=== PATIENT | male | born 1980 | race Two or more races ===

== ENCOUNTER 2020-03-12 15:31 | Outpatient (REF) | payer OTHER, SELFPAY ==
--- NOTE | 2020-03-12 15:38 | XR_ITS ---
EXAMINATION: XR HAND, LEFT CLINICAL INFORMATION: Polyosteoarthritis COMPARISON: 02/13/2017 TECHNIQUE: PA, lateral, and oblique views of the left hand. FINDINGS: No fracture or dislocation. Alignment is anatomic. Joint spaces are maintained. The soft tissues are unremarkable. There is corticated ossification at the distal aspect of the scaphoid. This is increased in prominence from 2006 XR/XR hand LT 2V IMPRESSION: . No significant arthritic changes. Corticated ossification adjacent to the distal tip of the scaphoid which has increased in prominence since 2006
--- NOTE | 2020-03-12 15:38 | XR_ITS ---
EXAMINATION: XR LUMBOSACRAL SPINE CLINICAL INFORMATION: Low back pain COMPARISON: None TECHNIQUE: Three views of the lumbosacral spine. FINDINGS: The vertebral bodies and posterior elements are normal. The disc spaces are preserved and the vertebral alignment is normal. The paraspinal soft tissues are normal. XR/XR lumbar spine 2-3V IMPRESSION: No evidence of acute fracture or malalignment.
== END 2020-03-12 15:32 | disposition home or self-care (01) ==
LOC: HO.XRAY 15:31
PROVIDERS: PCP Internal Medicine; Visit Provider Physician Assistant
DX: M15.9 Polyosteoarthritis, unspecified (principal); M54.5 Low back pain
CPT/HCPCS: 72100; 73120

== ENCOUNTER → 2020-05-26 09:24 | Outpatient (BNVA) | payer OTHER, SELFPAY | PROVIDERS: PCP Internal Medicine; Visit Provider Nurse Practitioner Family ==

== ENCOUNTER → 2020-08-25 08:51 | Outpatient (BNVA) | payer OTHER, SELFPAY | PROVIDERS: PCP Internal Medicine; Visit Provider Nurse Practitioner Family ==

== ENCOUNTER 2021-03-03 11:45 | Outpatient (REF) | payer OTHER, SELFPAY ==
[2021-03-03 12:08] LABS: MANUAL DIFF FLAG NO
[2021-03-03 12:10] LABS: Basophils Percent Auto 0.4 % (0-2); Eosinophils Absolute Auto 0.2 X10*3/uL (0.0-0.4); Eosinophils Percent Auto 3.1 % (0-4); Hematocrit 43.8 % (42.0-52.0); Hemoglobin 14.3 g/dl (14.0-18.0); Imm Gran Abs Auto 0.01 X10*3/uL (0.00-0.03); Imm Gran Pct Auto 0.1 % (0.0-0.4); Lymphocytes Absolute Auto 1.9 X10*3/uL (1.2-4.9); Lymphocytes Percent Auto 28.8 % (20-40); Mean Corpuscular HGB Conc 32.6 g/dl (31.0-36.0); Mean Corpuscular Hemoglobin 28.1 pg (27.0-33.0); Mean Corpuscular Volume 86.1 fL (80.0-98.0); Mean Platelet Volume 9.8 fL (9.4-12.4); Monocytes Absolute Auto 0.7 X10*3/uL (0.1-1.2); Monocytes Percent Auto 10.3 % (2-11); Neutrophils Absolute Auto 3.8 x10*3/uL (2.0-8.3); Neutrophils Percent Auto 57.3 % (45-73); Platelet Count 268 X10*3/uL (160-400); Red Blood Count 5.09 X10*6/uL (4.60-5.80); Red Cell Distribution Width 14.1 % (11.0-16.0); White Blood Count 6.7 X10*3/uL (4.8-10.8)
[2021-03-03 12:35] LABS: Alanine Aminotransferase 39 U/L (0-40); Albumin Level 4.5 g/dL (3.5-5.0); Alkaline Phosphatase 68 U/L (39-117); Anion Gap 11 (12-20); Aspartate Amino Transferase 31 U/L (5-37); Bilirubin Total 0.3 mg/dL (0.0-1.0); Blood Urea Nitrogen 16 mg/dL (9-16); Calcium 9.8 mg/dL (8.4-10.2); Carbon Dioxide 29 mmol/L (22-29); Chloride 105 mmol/L (96-108); Cholesterol 183 mg/dL; Estimated Glomerular Filt Rate > 60; Glucose Fasting 93 mg/dL (60-99); HDL Cholesterol 43 mg/dL; LDL Cholesterol Calculated 121 mg/dl; Potassium 5.1 mmol/L (3.3-5.1); Sodium 140 mmol/L (135-145); Total Protein 7.3 g/dL (6.5-8.0); Triglycerides 95 mg/dL
[2021-03-03 12:50] LABS: Thyroid Stimulating Hormone 1.17 uIU/mL (0.32-4.0)
[2021-03-08 14:16] LABS: Vitamin D 25-OH, D2 <4 ng/mL; Vitamin D 25-OH, D3 16 ng/mL; Vitamin D 25-OH, Total 16 ng/mL (30-100)
== END 2021-03-03 11:46 | disposition home or self-care (01) ==
LOC: HO.LAB 11:45
PROVIDERS: PCP Internal Medicine; Visit Provider Internal Medicine
DX: E66.9 Obesity, unspecified (principal); Z68.31 Body mass index [BMI] 31.0-31.9, adult; E78.5 Hyperlipidemia, unspecified; D64.9 Anemia, unspecified; E55.9 Vitamin D deficiency, unspecified
CPT/HCPCS: 36415; 80053; 80061; 82306; 84443; 85025

== ENCOUNTER → 2021-08-04 09:51 | Outpatient (BNVA) | payer OTHER, SELFPAY | PROVIDERS: PCP Internal Medicine; Visit Provider Physician Assistant Medical | DX: S39.012A Strain of muscle, fascia and tendon of lower back, initial encounter (principal); X58.XXXA Exposure to other specified factors, initial encounter | CPT/HCPCS: 99203 ==

== ENCOUNTER → 2021-08-11 13:03 | Outpatient (BNVA) | payer OTHER, SELFPAY | PROVIDERS: PCP Internal Medicine; Visit Provider Physician Assistant | DX: S39.012A Strain of muscle, fascia and tendon of lower back, initial encounter (principal); X58.XXXA Exposure to other specified factors, initial encounter | CPT/HCPCS: 99213 ==

== ENCOUNTER → 2022-05-06 11:06 | Outpatient (BNVA) | payer OTHER, SELFPAY | PROVIDERS: PCP Internal Medicine; Referring Provider Internal Medicine; Visit Provider Surgery | DX: Z13.89 Encounter for screening for other disorder (principal) ==

== ENCOUNTER 2023-06-08 10:47 | Outpatient (AMB) | payer OTHER, SELFPAY ==
--- NOTE | 2023-06-08 10:55 | A.OFFPC_ITS ---
Vital Signs 06/08/23 10:58 Height 5 ft 10 in Weight 221 lb 4 oz BMI 31.7 BP 100/66 Blood Pressure Location Lt brachial Position Sitting Pulse 106 H Pulse Source Pulse Oximeter Pulse Oximetry (%) 97 Oxygen Delivery Method Room Air Intake Visit Reasons: Alba Ocampo Intake Note: Patient is here today for transfer of care from . Patient is here to follow up on ROBERTO CARLOS, Asthma, Lumbar back pain. Deputy General Counsel Required: No Shuttle Fitting Supervisor: Not Required per policy Accompanied by: Self / Same As Patient Allergies aspirin Allergy (Intermediate, Verified 06/08/23 13:03) anaphylaxis citric acid [Ying-[place]] Allergy (Intermediate, Verified 06/08/23 13:03) anaphylaxis ibuprofen Allergy (Intermediate, Verified 06/08/23 13:03) headache, anaphylaxis seafood Allergy (Intermediate, Verified 06/08/23 13:03) Anaphylaxis shellfish derived Allergy (Intermediate, Verified 06/08/23 13:03) Anaphylaxis sodium bicarbonate [Ying-[place]] Allergy (Intermediate, Verified 06/08/23 13:03) anaphylaxis naproxen Adverse Reaction (Mild, Verified 06/08/23 13:03) nausea Medication List - Last Reconciled 06/08/23 by Abdullahi Haddad MD albuterol sulfate 90 mcg/actuation 2 puffs PO Q6H PRN epinephrine (EpiPen) 0.3 mg (0.3 mL) IM Q4H PRN triamcinolone acetonide (Nasacort) 1 spray intranasal DAILY 30 days Tobacco use date assessed: 06/08/23 Dental Screening Dental Screen Date: 06/08/23 Did you have a dental visit in the last 12 months?: No Did you have a dental problem in the last 6 months where you did not have access to dental care?: No Was dental information given to patient?: Patient has dentist HPI Alba Ocampo HPI Details 42-year-old male presents to the office to discuss his medical issues. I will be assuming his care as his prior provider has left the practice. Patient gives history of asthma and has had best results with Flovent disc. He uses the albuterol as a rescue inhaler. He is having difficulty filling the Flovent prescription. He can not recall the current steroid medication he is on. He got it from elsewhere. Patient was seen by the surgeon last year for his lipoma on the back. Surgery was not offered to him. Patient feels, he is experiencing more discomfort while driving etcetera. [facility] Medical History (Updated 05/06/22 @ 11:29 by Masood Grijalva MD, FACS, [facility]) Mild recurrent major depression Class 1 obesity with body mass index (BMI) of 31.0 to 31.9 in adult Nasal polyp ROBERTO CARLOS (obstructive sleep apnea) Moderate asthma Surgical History (Updated 06/08/23 @ 11:03 by CHRISTIANO Guzman) History of nasal surgery History of tracheostomy History of chest tube placement Family History Mother No problems noted. Father Asthma Substance use disorder Son No problems noted. Sister No problems noted. Brother No problems noted. Social History (Updated 06/08/23 @ 11:03 by CHRISTIANO Guzman) Housing: House Alcohol intake: never Patient Tobacco Use Status: Never used Tobacco Tobacco use type: Cigarette e-Cigarette/Vaping Use: Currently Using Frequency of e-Cigarette/Vaping Use: every other day Second Hand Smoke Exposure: No service: No Current occupational status: employed Current occupational exposures/hazards: No Cognitive needs: No Hearing needs: No Vision needs: No Questionnaire PHQ-9 Over the last 2 weeks, how often have you been bothered by any of the following problems? 1. Little interest or pleasure in doing things: not at all 2. Feeling down, depressed, or hopeless: not at all 3. Trouble falling or staying asleep, or sleeping too much: not at all 4. Feeling tired or having little energy: not at all 5. Poor appetite or overeating: not at all 6. Feeling bad about yourself - or that you are a failure or have let yourself or your family down: not at all 7. Trouble concentrating on things, such as reading the newspaper or watching television: not at all 8. Moving or speaking so slowly that other people could have noticed. Or the opposite - being so fidgety or restless that you have been moving around a lot more than usual: not at all 9. Thoughts that you would be better off or of hurting yourself in some way: not at all Total score: 0 Depression Screening Interpretation: Negative Depression Screening Done: Yes Source: Developed by Drs. Odin Leblanc, Lauryn Andrade, Lawrence Corrigan and colleagues, with an educational tawanna from [employer]. Thrive Questionnaire Date Thrive assessed: 06/08/23 I am a: Patient What is your living situation today?: I have a steady place to live Within the past 12 months, did the food you bought not last and you didn't have the money to get more?: Never true Within the past 12 months, did you worry whether your food would run out before you got money to buy more?: Never true Do you have trouble paying for medicines?: No Do you have trouble getting transportation to medical appointments?: No Do you have trouble paying your heating and electricity bill?: No Do you have trouble taking care of your child, family member or friend?: No Do you have trouble with day-to-day activities such as bathing, preparing meals, shopping, managing finances, etc.?: No Are you currently unemployed and looking for a job?: No Are you interested in more education?: No Currently or been in a relationship where the following occur: no concerns reported THRIVE Score: 0 AUDIT C Alcohol Use Questionnaire (AUDIT-C) 1. How often do you have a drink containing alcohol?: Never Total Score: 0 DINA-7 AMB Questionnaire DINA-7 Date DINA - 7 assessed: 06/08/23 Feeling nervous, anxious, or on edge: 0 = Not at all Not being able to stop or control worryin = Not at all Worrying too much about different things: 0 = Not at all Trouble relaxin = Not at all Being so restless that it is hard to sit still: 0 = Not at all Becoming easily annoyed or irritable: 0 = Not at all Feeling afraid as if something awful might happen: 0 = Not at all Total DINA-7 score (0-4 normal; 5-9 mild; 10-14 moderate; 15-21 severe): 0 Source: Developed by Drs. Odin Leblanc, Lauryn Andrade, Lawrence Corrigan and colleagues, with an educational tawanna from [employer]. Physical exam (Primary Care) Vital Signs: Last Vital Signs Pulse 106 H 06/08/23 10:58 BP 100/66 06/08/23 10:58 Pulse Ox 97 06/08/23 10:58 Oxygen Delivery Method Room Air 06/08/23 10:58 BMI result Body Mass Index 31.7 Tobacco/Smoking Status: Tobacco use Status Tobacco use date assessed 06/08/23 06/08/23 11:00 Patient Tobacco Use Status Never used Tobacco 06/08/23 11:05 Tobacco use type Cigarette 06/08/23 11:03 e-Cigarette/Vaping Use Currently Using 06/08/23 11:05 PHQ-9: PHQ-9 Score PHQ-9: Total score 0 06/08/23 11:00 Depression Screening Interpretation: Negative Thrive Assessment: Date of Thrive Assessment Date Thrive assessed 06/08/23 06/08/23 11:00 Currently or been in a relationship where the following occur: no concerns reported Const General: cooperative and healthy appearing Nutritional Appearance: well nourished Orientation/consciousness: patient oriented x3 Limitations: no limitations HENMT Head: Yes normal to inspection Eyes General: appearance normal, both eyes and all related structures Neck Neck: Yes normal visual inspection Chest Chest palpation & inspection: normal palpation of entire chest wall Resp Effort & Inspection: normal respiratory effort Neuro General: patient oriented x3 Assessment and Plan Assessment & Plan (1) Mild recurrent major depression: Code(s): F33.0 - Major depressive disorder, recurrent, mild Plan: Condition is stable. Continue current medications. (2) Moderate asthma: Code(s): J45.909 - Unspecified asthma, uncomplicated Qualifiers: Asthma persistence: persistent Asthma complication type: uncomplicated Qualified Code(s): J45.40 - Moderate persistent asthma, uncomplicated Plan: Patient will call and and inform us of the steroid inhaler he is currently using and I will call in the prescription. Blood work has been ordered. (3) Lipoma of back: Code(s): D17.1 - Benign lipomatous neoplasm of skin and subcutaneous tissue of trunk Plan: Patient advised to call the surgeon and ask for it to be removed. Orders: Orders Liver Panel Today F33.0 - Major depressive disorder, recurrent, mild, J45.909 - Unspecified asthma, uncomplicated Lipid Panel Today F33.0 - Major depressive disorder, recurrent, mild, J45.909 - Unspecified asthma, uncomplicated UA and rflx microscopic Today F33.0 - Major depressive disorder, recurrent, mild, J45.909 - Unspecified asthma, uncomplicated Complete Blood Count no Diff Today F33.0 - Major depressive disorder, recurrent, mild, J45.909 - Unspecified asthma, uncomplicated Basic Metabolic Panel Today F33.0 - Major depressive disorder, recurrent, mild, J45.909 - Unspecified asthma, uncomplicated Thyroid Stimulating Hormone Today F33.0 - Major depressive disorder, recurrent, mild, J45.909 - Unspecified asthma, uncomplicated Medications: New epinephrine (EpiPen) 0.3 mg (0.3 mL) IM Q4H PRN 2 ea 0RF anaphylaxis Coding Level of Care Code Est Pt Level 4 (08106) Diagnoses Mild recurrent major depression F33.0 Moderate persistent asthma without complication J45.40 Asthma persistence: persistent Asthma complication type: uncomplicated Lipoma of back D17.1
[2023-06-08 10:58] VITALS: BP 100/66; PULSE 106; O2SAT 97; BMI 31.7
== END 2023-06-08 13:27 | disposition home or self-care (01) ==
PROVIDERS: PCP Internal Medicine; Visit Provider Internal Medicine
DX: F33.0 Major depressive disorder, recurrent, mild (principal); J45.40 Moderate persistent asthma, uncomplicated; D17.1 Benign lipomatous neoplasm of skin and subcutaneous tissue of trunk
CPT/HCPCS: 99214

== ENCOUNTER 2024-03-06 14:36 | Outpatient (AMB) | payer OTHER, SELFPAY ==
--- NOTE | 2024-03-06 14:42 | MHC.PC.OV ---
Vital Signs 03/06/24 14:44 Height 5 ft 10 in Weight 211 lb 6 oz BMI 30.3 BP 100/68 Blood Pressure Location Lt brachial Position Sitting Pulse 93 Pulse Source Pulse Oximeter Pulse Oximetry (%) 97 Oxygen Delivery Method Room Air Intake Visit Reasons: Rsched from 03/06 Intake Note: Patient is here to follow up on Lump on back. Wafer Polisher Required: No Small Battery Plate Assembler: Not Required per policy Accompanied by: Self / Same As Patient Allergies aspirin Allergy (Intermediate, Verified 03/06/24 14:43) anaphylaxis citric acid [Ying-[place]] Allergy (Intermediate, Verified 03/06/24 14:43) anaphylaxis ibuprofen Allergy (Intermediate, Verified 03/06/24 14:43) headache, anaphylaxis seafood Allergy (Intermediate, Verified 03/06/24 14:43) Anaphylaxis shellfish derived Allergy (Intermediate, Verified 03/06/24 14:43) Anaphylaxis sodium bicarbonate [Ying-[place]] Allergy (Intermediate, Verified 03/06/24 14:43) anaphylaxis naproxen Adverse Reaction (Mild, Verified 03/06/24 14:43) nausea Tobacco use date assessed: 03/06/24 Dental Screening Dental Screen Date: 06/08/23 HPI Rsched from 03/06 HPI Details 43-year-old male presenting to the clinic for evaluation of the lump to his left back that is increased in size and causing him more pain. Patient is requesting to be seen by the general surgeon again to have this surgically removed. He reports when he seen the general surgeon in the past the lipoma was not affecting his daily life, at that time he decided not to have it surgically removed. He reports it is now affecting his daily life, causing him discomfort daily. Pain from the lipoma is worse when he sits back or lays down. Patient admits to recently being evaluated at [facility] Department 2 weeks ago for asthma exacerbation. Had a negative chest x-ray for pneumonia. Diagnosed with URI. Sent home on a week of prednisone which he has completed. He did not receive any antibiotics. He reports his symptoms has completely resolved from the URI. Patient requesting refill on albuterol inhaler. Patient is interested in influenza vaccine at this time. Patient forgot to have his blood work obtain at his last visit reports he will go this week for the labs that were ordered in May. Patient denies any other symptoms complaints or concerns at this time. [facility] Medical History Mild recurrent major depression Class 1 obesity with body mass index (BMI) of 31.0 to 31.9 in adult Nasal polyp ROBERTO CARLOS (obstructive sleep apnea) Moderate asthma Surgical History History of nasal surgery History of tracheostomy History of chest tube placement Family History Mother No problems noted. Father Asthma Substance use disorder Son No problems noted. Sister No problems noted. Brother No problems noted. Social History Housing: House Alcohol intake: never Patient Tobacco Use Status: Never used Tobacco Tobacco use type: Cigarette e-Cigarette/Vaping Use: Currently Using Second Hand Smoke Exposure: No service: No Current occupational status: employed Current occupational exposures/hazards: No Cognitive needs: No Hearing needs: No Vision needs: No Questionnaire Thrive Questionnaire Date Thrive assessed: 06/08/23 DINA-7 AMB Questionnaire DINA-7 Date DINA - 7 assessed: 06/08/23 Source: Developed by Drs. Odin Leblanc, Lauryn Andrade, Lawrence Corrigan and colleagues, with an educational tawanna from [employer]. Review of Systems Const All systems reviewed & are unremarkable except as noted in HPI and below Physical exam (Primary Care) Vital Signs: Last Vital Signs Pulse 93 03/06/24 14:44 BP 100/68 03/06/24 14:44 Pulse Ox 97 03/06/24 14:44 Oxygen Delivery Method Room Air 03/06/24 14:44 Appearance: Alert. Oriented X3. No acute distress. ? Head: Normal external exam. Normocephalic. Atraumatic.? Eyes: PERRLA. EOMI. Conjunctiva and sclera normal. Eyelids normal. ? ENT: Pharynx normal. Uvula midline. Moist mucous membranes. ? Neck: Normal inspection. Neck supple. FROM. CVS: Normal heart rate and rhythm. Heart sound normal. No murmurs noted. Pulses normal throughout. Respiratory: No respiratory distress. Painless inspiration. Breath sounds normal. No wheezes/rales/rhonchi noted. Chest nontender. ? No accessory muscle usage noted or decreased air movement noted. Back: ?Full range of motion noted. To left back at the wing of the scapula patient noted to have a 15 x 15 lipoma. There is no erythema, advancing erythema, streaking, purulent drainage, foul odor, crepitus or signs of infection at this time. Skin: Skin warm and dry.? Normal skin color.? Normal skin turgor. No rashes noted. Extremities: Extremities exhibit normal range of motion.? Neuro: Oriented X 3.? No motor deficit.? No sensory deficit.? BMI result Body Mass Index 30.3 Tobacco/Smoking Status: Tobacco use Status Tobacco use date assessed 03/06/24 03/06/24 14:48 Patient Tobacco Use Status Never used Tobacco 03/06/24 14:48 Tobacco use type Cigarette 03/06/24 14:48 e-Cigarette/Vaping Use Currently Using 03/06/24 14:48 Thrive Assessment: Date of Thrive Assessment Date Thrive assessed 06/08/23 03/06/24 14:48 Office Procedures Flu Questionnaire Does the patient have a severe egg allergy?: No Does the patient have severe life threatening allergies?: No Does the patient have a fever or illness today?: No Has the patient ever had Guillain-Brewster Syndrome?: No Has the patient ever had any past reaction to a flu shot?: No Immunizations Fluarix Triv [id number] (PF) 45 mcg (15 mcg x 3)/0.5 mL IM syringe Performing Provider: Abdullahi Haddad MD [facility] [place] [facility] Administered by: LORENZO Levin on 03/06/24 15:36 Dose Route Admin Location Dispensed Lot Number Expiration Date NDC Bundling Machine Operator 0.5 mL IM Left Deltoid 0.5 mL [id number] 10/21/24 [id number] [employer] VIS Given Date VIS Provided VIS Publication Date 03/06/24 Single Vaccine 20 Eligibility Eligibility Date Funding Source Not [facility] Eligible 03/06/24 Private Coding Level of Care Code Est Pt Level 4 (58041) Complex EM visit Add On G2211 Diagnoses Lipoma of back D17.1 Moderate persistent asthma without complication J45.40 Asthma complication type: uncomplicated Asthma persistence: persistent Assessment & Plan Assessment & Plan (1) Lipoma of back: Code(s): D17.1 - Benign lipomatous neoplasm of skin and subcutaneous tissue of trunk Category: Medical Plan: Patient will be referred to general surgeon here at [facility]. (2) Moderate asthma: Code(s): J45.909 - Unspecified asthma, uncomplicated Category: Medical Qualifiers: Asthma complication type: uncomplicated Asthma persistence: persistent Qualified Code(s): J45.40 - Moderate persistent asthma, uncomplicated Plan: Patient given 3 refills for his albuterol inhaler. If he needs any additional refills he will contact us via phone or through the patient portal. Orders: Orders Influenza [id number] Immunization Today Z23 - Encounter for immunization Referrals General Surgery Referral D17.1 - Benign lipomatous neoplasm of skin and subcutaneous tissue of trunk Medications: Refilled albuterol sulfate 90 mcg/actuation 2 puffs PO Q6H PRN 8.5 grams 3RF for muscle spasm J45.40 - Moderate persistent asthma, uncomplicated Discontinued triamcinolone acetonide (Nasacort) administer into each nostril Discontinued Reason: Doctor's Order 1 spray intranasal DAILY 30 days 16.9 mL 1RF Patient Instructions: Patient to have outpatient labs while fasting. Albuterol inhaler refilled. Patient to be referred to general surgeon for lipoma Patient to return in 6 months.
[2024-03-06 14:44] VITALS: BP 100/68; PULSE 93; O2SAT 97; BMI 30.3
== END 2024-03-06 15:31 | disposition home or self-care (01) ==
PROVIDERS: PCP Internal Medicine; Visit Provider Internal Medicine
DX: D17.1 Benign lipomatous neoplasm of skin and subcutaneous tissue of trunk (principal); J45.40 Moderate persistent asthma, uncomplicated; Z23 Encounter for immunization

== ENCOUNTER → 2024-03-06 14:36 | Outpatient (BNVA) | payer OTHER, SELFPAY | PROVIDERS: PCP Internal Medicine; Visit Provider Internal Medicine | DX: D17.1 Benign lipomatous neoplasm of skin and subcutaneous tissue of trunk (principal); J45.40 Moderate persistent asthma, uncomplicated; Z23 Encounter for immunization | CPT/HCPCS: 90471; 90656 ==

== ENCOUNTER 2024-03-20 07:56 | Outpatient (AMB) | payer OTHER, SELFPAY ==
--- NOTE | 2024-03-20 07:59 | MHC.OFFVIS ---
Vital Signs 03/20/24 08:05 Height 5 ft 10 in Weight 214 lb BMI 30.7 BP 125/71 Blood Pressure Location Rt brachial Position Sitting Pulse 76 Intake Visit Reasons: Lipoma Intake Note: Patient referred by pcp Dr. Haddad for lipoma on back. Present for 2yrs. Patient c/o: enlarging, painful with pressure. Lamp Tester And Inspector Required: No Accompanied by: Self / Same As Patient Allergies aspirin Allergy (Intermediate, Verified 03/20/24 08:04) anaphylaxis citric acid [Ying-[place]] Allergy (Intermediate, Verified 03/20/24 08:04) anaphylaxis ibuprofen Allergy (Intermediate, Verified 03/20/24 08:04) headache, anaphylaxis seafood Allergy (Intermediate, Verified 03/20/24 08:04) Anaphylaxis shellfish derived Allergy (Intermediate, Verified 03/20/24 08:04) Anaphylaxis sodium bicarbonate [Ying-[place]] Allergy (Intermediate, Verified 03/20/24 08:04) anaphylaxis naproxen Adverse Reaction (Mild, Verified 03/20/24 08:04) nausea HPI Comments Details: Patient presents with a 2+ year history of a left mid back giant lipoma. Because of progression of symptoms he presents here for further evaluation. He would like to have it excised. Patient had a smaller lower back lipoma excised several years ago but nothing to this size as he has now. Chart was reviewed and patient evaluate [facility] Medical History Mild recurrent major depression Class 1 obesity with body mass index (BMI) of 31.0 to 31.9 in adult Nasal polyp ROBERTO CARLOS (obstructive sleep apnea) Moderate asthma Surgical History History of nasal surgery History of tracheostomy History of chest tube placement Family History Mother No problems noted. Father Asthma Substance use disorder Son No problems noted. Sister No problems noted. Brother No problems noted. Social History Housing: House Alcohol intake: never Patient Tobacco Use Status: Never used Tobacco Tobacco use type: Cigarette e-Cigarette/Vaping Use: Currently Using Second Hand Smoke Exposure: No service: No Current occupational status: employed Current occupational exposures/hazards: No Cognitive needs: No Hearing needs: No Vision needs: No Physical Exam Vital Signs: Last Vital Signs Pulse 76 03/20/24 08:05 BP 125/71 03/20/24 08:05 BMI result Body Mass Index 30.7 Const Other: Well-developed male in no acute distress Chest Other: Chest breath sounds bilaterally, HS 1 in 2 GI Other: Abdomen mildly corpulent, soft, benign Back/Spine/Pelvis Other: Patient has an enormous left mid back lipoma. This measures approximately 15 by 8 cm. Assessment & Plan Assessment & Plan (1) Lipoma of back: Code(s): D17.1 - Benign lipomatous neoplasm of skin and subcutaneous tissue of trunk Category: Surgical Plan Risks, benefits, alternatives of massive left mid back lipoma excision were reviewed with the patient and included but not limited to bleeding, infection, recurrence, numbness, pain, scarring, seroma formation, wound dehiscence and the patient wishes to proceed. All questions answered. Arrangements were made for this on a day which is convenient for him. Coding Level of Care Code New Pt Level 5 (16848) Diagnoses Lipoma of back D17.1
[2024-03-20 08:05] VITALS: BP 125/71; PULSE 76; BMI 30.7
== END 2024-03-20 08:15 | disposition home or self-care (01) ==
PROVIDERS: PCP Internal Medicine; Visit Provider Surgery
DX: D17.1 Benign lipomatous neoplasm of skin and subcutaneous tissue of trunk (principal)
CPT/HCPCS: 99204

== ENCOUNTER 2024-04-12 09:45 | Day surgery (SDC) | payer OTHER, SELFPAY ==
[2024-04-10 10:23] VITALS: BMI 30.7
--- NOTE | 2024-04-11 08:59 | P.HPSUR_ITS ---
Pre-Procedural Eval Section A - 24 Hr Update-Section A only Date of Service: 04/11/24 The patient is an INPATIENT: No Changes since office visit: No Cold of Flu in the past 2 weeks, No New Medical Problems, No Changes in Medication and No Patient answered all questions Section B - Complete if H&P > 30 days Chief Complaint: Benign lipomatous neoplasm of skin Allergies: Allergies Allergy/AdvReac Type Severity Reaction Status Date / Time aspirin Allergy Intermediate anaphylaxis Verified 03/20/24 08:04 citric acid [Ying-[place]] Allergy Intermediate anaphylaxis Verified 03/20/24 08:04 ibuprofen Allergy Intermediate headache, Verified 03/20/24 08:04 anaphylaxis seafood Allergy Intermediate Anaphylaxis Verified 03/20/24 08:04 shellfish derived Allergy Intermediate Anaphylaxis Verified 03/20/24 08:04 sodium bicarbonate Allergy Intermediate anaphylaxis Verified 03/20/24 08:04 [Ying-[place]] naproxen AdvReac Mild nausea Verified 03/20/24 08:04 Review of Systems Sugical H&P ROS: Negative: Constitution, Cardiovascular, Respiratory, Neurological, Psychiatric, Hem-Onc, Allergic/Immunologic, Gastrointestinal, Genitourinary, Musculoskeletal, Integumentary, Endocrine and Eyes/Ears/Nose/Throat Exam Surgical H&P Exam: Normal: HEENT, Normal: Heart, Normal: Lungs, Normal: Extremities, Normal: Abdomen, Normal: Skin and Normal: Neurological Plan I have reviewed the history and physical and performed a pertinent physical examination on my patient. No changes have occurred unless specified. Time Spent With Patient Time: Total time managing care of this patient today ____ minutes.
[2024-04-12 11:45] VITALS: BMI 30.1
[2024-04-12 11:48] VITALS: BP 127/79; PULSE 77; RESP 16; TEMP 36.5; O2SAT 96
[2024-04-12] MEDS: Lactated Ringers 1,000 ML 100 ML IVCONT (12:14)
[2024-04-12] MEDS: Albuterol Sulfate (0.083%) 2.5 MG/3 ML VIAL.NEB INHALE (12:27)
[2024-04-12 12:30] VITALS: PULSE 65; RESP 14; O2SAT 95
--- NOTE | 2024-04-12 13:13 | P.CONAN_ITS ---
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 Father Asthma Substance use disorder Son No problems noted. Sister No problems noted. Brother No problems noted. Surgical History Surgical History History of nasal surgery History of tracheostomy History of chest tube placement Social History Social History Housing: House Alcohol intake: never Patient Tobacco Use Status: Never used Tobacco Tobacco use type: Cigarette e-Cigarette/Vaping Use: Currently Using Second Hand Smoke Exposure: No Use of substances other than those prescribed or required for medical reasons: Yes Substance Use Type Other:: THC vape Are you DNR?: No Advance Directives: No Advance Directives Information Provided: Yes service: No Current occupational status: employed Current occupational exposures/hazards: No Cognitive needs: No Hearing needs: No Vision needs: No Meds Allergies Allergy/AdvReac Type Severity Reaction Status Date / Time aspirin Allergy Intermediate anaphylaxis Verified 03/20/24 08:04 citric acid [[place]] Allergy Intermediate anaphylaxis Verified 03/20/24 08:04 ibuprofen Allergy Intermediate headache, Verified 03/20/24 08:04 anaphylaxis seafood Allergy Intermediate Anaphylaxis Verified 03/20/24 08:04 shellfish derived Allergy Intermediate Anaphylaxis Verified 03/20/24 08:04 sodium bicarbonate Allergy Intermediate anaphylaxis Verified 03/20/24 08:04 [[place]] naproxen AdvReac Mild nausea Verified 03/20/24 08:04 Exam Height,Weight and Vital Signs: Height 5 ft 10 in Weight 97.069 kg Assessment and Plan Assessment Anesthesia Assessment: Chart Reviewed Documented by User: Sunitha Peck DO 04/12/24 13:13 HPI - Anesthesia Eval Consult details Narrative: 43yo M for Left Wide Local Excision Mid Back Giant Lipoma. Vapes. ROBERTO CARLOS not on CPAP. PENDING SALE TO [facility] Past Medical History Medical History Mild recurrent major depression Class 1 obesity with body mass index (BMI) of 31.0 to 31.9 in adult Nasal polyp ROBERTO CARLOS (obstructive sleep apnea) Moderate asthma Family History Family History Mother No problems noted. Father Asthma Substance use disorder Son No problems noted. Sister No problems noted. Brother No problems noted. Family history of problems with anesthesia: No Surgical History Surgical History History of nasal surgery History of tracheostomy History of chest tube placement History of Problems with Anesthesia: No Social History Social History Housing: House Alcohol intake: never Patient Tobacco Use Status: Never used Tobacco Tobacco use type: Cigarette e-Cigarette/Vaping Use: Currently Using Second Hand Smoke Exposure: No Use of substances other than those prescribed or required for medical reasons: Yes Substance Use Type Other:: THC vape Are you DNR?: No Advance Directives: No Advance Directives Information Provided: Yes service: No Current occupational status: employed Current occupational exposures/hazards: No Cognitive needs: No Hearing needs: No Vision needs: No Meds Allergies Allergy/AdvReac Type Severity Reaction Status Date / Time aspirin Allergy Intermediate anaphylaxis Verified 03/20/24 08:04 citric acid [[place]] Allergy Intermediate anaphylaxis Verified 03/20/24 08:04 ibuprofen Allergy Intermediate headache, Verified 03/20/24 08:04 anaphylaxis seafood Allergy Intermediate Anaphylaxis Verified 03/20/24 08:04 shellfish derived Allergy Intermediate Anaphylaxis Verified 03/20/24 08:04 sodium bicarbonate Allergy Intermediate anaphylaxis Verified 03/20/24 08:04 [[place]] naproxen AdvReac Mild nausea Verified 03/20/24 08:04 Exam Exam Date and Time: 04/12/24 1300 Height,Weight and Vital Signs: Height 5 ft 10 in Weight 97.069 kg Vital Signs Temperature 97.7 F 04/12/24 11:48 Pulse Rate 77 04/12/24 11:48 Respiratory Rate 16 04/12/24 11:48 Blood Pressure 127/79 04/12/24 11:48 Pulse Oximetry 96 04/12/24 11:48 Oxygen Delivery Method Room Air 04/12/24 11:48 Temperature 97.7 F 04/12/24 11:48 Pulse Rate 65 04/12/24 12:30 Respiratory Rate 14 04/12/24 12:30 Blood Pressure 127/79 04/12/24 11:48 Pulse Oximetry 96 04/12/24 11:48 Oxygen Delivery Method Room Air 04/12/24 11:48 Airway Mallampati Class: II TM Dist: >3cm Neck ROM: Full Loose/Missing/Broken Teeth: No (patient denies any loose or broken teeth) Heart: S1S2 Lungs: CTAB Assessment and Plan Assessment Anesthesia Assessment: Anesthesia Plan Discussed and Chart Reviewed Final Anesthetic Review Family History of Problems with Anesthesia: No History of Problems with Anesthesia: No NPO: Yes ASA Class: II Final Preanesthetic Review: No Changes in Pt Med Stat, Meds/Allgs Chart Reviewe d, Consent Obtained/Reviewed and Anes Risks/Benef Reviewed Patient Risk: Low Procedure Risk: Low Anesthetic Plan Anesthetic Plan: MAC: and Agree w/ Assess. and Plan Disposition: Standard PACU
--- NOTE | 2024-04-12 14:14 | W.PM.OPN ---
Operative Note Operative Note Date of Service: 04/12/24 Narrative: Preoperative diagnosis: [] Giant left mid flank lipoma Postop diagnosis: [] The same Procedure [] excision giant lipoma Surgeon: [] Cameron Hyperion Analyst: [] [place] Type of Anesthesia: [] Mac Indication for surgery: [] Final specimen size roughly 13 x 12 cm consistent with a giant lipoma Findings: [] Patient brought to the operating room, placed on operative table supine position, after an adequate level of MAC anesthesia was induced, patient was placed in the right lateral decubitus position. Back was prepped and draped in usual sterile fashion using a transverse incision over the mass in question in the mid lateral left back, this carried down through skin, subcutaneous tissue, were superior and inferior skin flaps were developed and the giant lipoma was encountered. This was circumferentially dissected from the surrounding soft tissue and underlying muscle fascia and uneventfully removed. Specimen sent to pathology. Wound was irrigated, secured hemostasis, and closed in the following manner; subcutaneous tissue was reapproximated using interrupted 3-0 Vicryl suture. Skin was closed using interrupted inverted dermal 3-0 Vicryl sutures followed by Steri-Strips and sterile dressings. Wound was infiltrated with 0.5% Marcaine/1% lidocaine at the beginning at the end of the case. Sponge, needle, and instrument counts were reported correct. Patient tolerated the procedure well and emerged from anesthesia stable condition. EBL minimal
[2024-04-12 14:16] VITALS: BP 131/87; PULSE 77; RESP 16; TEMP 36.4; O2SAT 96
[2024-04-12 14:32] VITALS: BP 116/76; PULSE 74; RESP 16; TEMP 36.3; O2SAT 97
== END 2024-04-12 15:12 | disposition home or self-care (01) ==
PROVIDERS: PCP Internal Medicine; Visit Provider Surgery
PROC: (CPT 21931; principal; 2024-04-12 12:30)
DX: D17.1 Benign lipomatous neoplasm of skin and subcutaneous tissue of trunk (principal); G47.33 Obstructive sleep apnea (adult) (pediatric); J45.998 Other asthma; E66.811 Obesity, class 1; Z68.31 Body mass index [BMI] 31.0-31.9, adult; F33.0 Major depressive disorder, recurrent, mild; Z79.899 Other long term (current) drug therapy; Z88.6 Allergy status to analgesic agent; Z88.8 Allergy status to other drugs, medicaments and biological substances; Z98.890 Other specified postprocedural states
CPT/HCPCS: 21931; 88304; 94640; J0690; J1100; J2003; J2250; J2704; J2795; J3010

== ENCOUNTER → 2024-04-12 09:45 | Outpatient (BNV) | payer OTHER, SELFPAY | PROVIDERS: PCP Internal Medicine; Visit Provider Surgery | DX: D17.1 Benign lipomatous neoplasm of skin and subcutaneous tissue of trunk (principal) | CPT/HCPCS: 21931 ==

== ENCOUNTER 2024-04-23 12:55 | Outpatient (AMB) | payer OTHER, SELFPAY ==
--- NOTE | 2024-04-23 13:11 | A.OFFVIS_ITS ---
Intake Visit Reasons: S/P WLE Lt. mid back giant lipoma Intake Note: Patient here s/p WLE Lt mid back lipoma. Reports incision healing well. Patient c/o: no concerns. Denies bleeding, itch, pain. Surgery: 04-12-2024. 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 Accompanied by: Self / Same As Patient Allergies aspirin Allergy (Intermediate, Verified 04/23/24 13:12) anaphylaxis citric acid [Ying[place]] Allergy (Intermediate, Verified 04/23/24 13:12) anaphylaxis ibuprofen Allergy (Intermediate, Verified 04/23/24 13:12) headache, anaphylaxis seafood Allergy (Intermediate, Verified 04/23/24 13:12) Anaphylaxis shellfish derived Allergy (Intermediate, Verified 04/23/24 13:12) Anaphylaxis sodium bicarbonate [[place]ing[place]] Allergy (Intermediate, Verified 04/23/24 13:12) anaphylaxis naproxen Adverse Reaction (Mild, Verified 04/23/24 13:12) nausea HPI Comments Details: Status post giant lipoma excision from left mid back. Patient has minimal incisional discomfort. Pathology is benign. [facility] Medical History Mild recurrent major depression Class 1 obesity with body mass index (BMI) of 31.0 to 31.9 in adult Nasal polyp ROBERTO CARLOS (obstructive sleep apnea) Moderate asthma Surgical History History of nasal surgery History of tracheostomy History of chest tube placement Family History Mother No problems noted. Father Asthma Substance use disorder Son No problems noted. Sister No problems noted. Brother No problems noted. Social History Housing: House Alcohol intake: never Patient Tobacco Use Status: Never used Tobacco Tobacco use type: Cigarette e-Cigarette/Vaping Use: Currently Using Second Hand Smoke Exposure: No service: No Current occupational status: employed Current occupational exposures/hazards: No Cognitive needs: No Hearing needs: No Vision needs: No Physical Exam Back/Spine/Pelvis Other: Incision clean dry and intact healing well. Patient has a moderately sized seroma which is expected. Office Procedures Aspiration of Seroma Details: Under sterile technique, 80 cc after Betadine prep of seroma retrieved from mid back incision status post giant lipoma excision. Procedure well-tolerated Aspiration of Seroma: 97132 Seroma Aspiration All charges added?: Procedure code (CPT) selection complete Assessment & Plan Assessment & Plan (1) Seroma of skin or subcutaneous tissue after non-dermatologic procedure: Code(s): L76.34 - Postprocedural seroma of skin and subcutaneous tissue following other procedure Category: Surgical Plan: Patient was been given local instructions including avoiding strenuous activities next few weeks time and will otherwise follow-up p.r.n.. If he is quite active, the seroma is more likely to recur. All questions answered. Orders: Orders AMB Aspiration of Seroma Today L76.34 - Postprocedural seroma of skin and subcutaneous tissue following other procedure Coding Level of Care Code Global (46462) Diagnoses Seroma of skin or subcutaneous tissue after non-dermatologic procedure L76.34 CPT Codes Aspiration of Seroma ([id number])
== END 2024-04-23 13:19 | disposition home or self-care (01) ==
PROVIDERS: PCP Internal Medicine; Visit Provider Surgery
DX: L76.34 Postprocedural seroma of skin and subcutaneous tissue following other procedure (principal)
CPT/HCPCS: 99024

== ENCOUNTER → 2024-04-23 12:55 | Outpatient (BNVA) | payer OTHER, SELFPAY | PROVIDERS: PCP Internal Medicine; Visit Provider Surgery ==

== ENCOUNTER 2024-07-25 10:21 | Outpatient (AMB) | payer OTHER, SELFPAY ==
[2024-07-25 10:32] VITALS: BP 126/88; PULSE 84; RESP 16; TEMP 37; O2SAT 97; BMI 29.0
--- NOTE | 2024-07-25 10:32 | A.OFFPC_ITS ---
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 Accompanied by: Self / Same As Patient Allergies aspirin Allergy (Intermediate, Verified 07/25/24 10:46) anaphylaxis citric acid [Ying-[place]] Allergy (Intermediate, Verified 07/25/24 10:46) anaphylaxis ibuprofen Allergy (Intermediate, Verified 07/25/24 10:46) headache, anaphylaxis seafood Allergy (Intermediate, Verified 07/25/24 10:46) Anaphylaxis shellfish derived Allergy (Intermediate, Verified 07/25/24 10:46) Anaphylaxis sodium bicarbonate [Ying-[place]] Allergy (Intermediate, Verified 07/25/24 10:46) anaphylaxis naproxen Adverse Reaction (Mild, Verified 07/25/24 10:46) nausea Medication List - Last Reconciled 07/25/24 by SIMÓN Blackwood albuterol sulfate 90 mcg/actuation 2 puffs PO Q6H PRN epinephrine (EpiPen) 0.3 mg (0.3 mL) IM Q4H PRN Tobacco use date assessed: 07/25/24 Dental Screening Dental Screen Date: 07/25/24 Did you have a dental visit in the last 12 months?: No Did you have a dental problem in the last 6 months where you did not have access to dental care?: No Was dental information given to patient?: Patient has dentist HPI pain L inner leg HPI Details Patient is a 42-year-old male presenting with right inner thigh pain The patient reports the pain in the thigh area in more like a cramping type of pain He reports that this pain is more recent; he denies any noted injury to the area The patient is also c/o left mid back burning sensation type pain Reports that every since his surgery close this area, he has been having this type of pain on and off The patient is also concern of his right great toenail fungal and his wondering if he could get this treated Informed the patient that this area is not very vascular and his hard to treat; the area has to be treated for a long period with antifungal that could be toxic to the liver. Discussed with the patient that his liver enzymes with would have to be checked first and be monitored during the treatment. The patient would like these labs to be done to see if he could this treatment He denies chest pain, sob, heart palpitation [facility] Medical History Mild recurrent major depression Class 1 obesity with body mass index (BMI) of 31.0 to 31.9 in adult Nasal polyp ROBERTO CARLOS (obstructive sleep apnea) Moderate asthma Surgical History History of nasal surgery History of tracheostomy History of chest tube placement Family History Mother No problems noted. Father Asthma Substance use disorder Son No problems noted. Sister No problems noted. Brother No problems noted. Social History Housing: House Alcohol intake: never Patient Tobacco Use Status: Never used Tobacco e-Cigarette/Vaping Use: Currently Using Second Hand Smoke Exposure: No service: No Current occupational status: employed Current occupational exposures/hazards: No Cognitive needs: No Hearing needs: No Vision needs: No Questionnaire PHQ-9 Over the last 2 weeks, how often have you been bothered by any of the following problems? 1. Little interest or pleasure in doing things: several days 2. Feeling down, depressed, or hopeless: more than half the days 3. Trouble falling or staying asleep, or sleeping too much: nearly every day 4. Feeling tired or having little energy: nearly every day 5. Poor appetite or overeating: not at all 6. Feeling bad about yourself - or that you are a failure or have let yourself or your family down: not at all 7. Trouble concentrating on things, such as reading the newspaper or watching television: more than half the days 8. Moving or speaking so slowly that other people could have noticed. Or the opposite - being so fidgety or restless that you have been moving around a lot more than usual: nearly every day 9. Thoughts that you would be better off or of hurting yourself in some way: not at all Total score: 14 Depression Screening Interpretation: Positive Depression Screening Done: Yes 99493 - PHQ-9 Billing: Yes Source: Developed by Drs. Odin Leblanc, Lauryn nAdrade, Lawrence Corrigan and colleagues, with an educational tawanna from [employer]. Thrive Questionnaire Date Thrive assessed: 07/25/24 I am a: Patient What is your living situation today?: I have a steady place to live Within the past 12 months, did the food you bought not last and you didn't have the money to get more?: Never true Within the past 12 months, did you worry whether your food would run out before you got money to buy more?: Never true Do you have trouble paying for medicines?: No Do you have trouble getting transportation to medical appointments?: No Do you have trouble paying your heating and electricity bill?: No Do you have trouble taking care of your child, family member or friend?: No Do you have trouble with day-to-day activities such as bathing, preparing meals, shopping, managing finances, etc.?: No Are you currently unemployed and looking for a job?: No Are you interested in more education?: No Please select the resources that you would like help with: None Currently or been in a relationship where the following occur: No concerns reported THRIVE Score: 0 AUDIT C Alcohol Use Questionnaire (AUDIT-C) 1. How often do you have a drink containing alcohol?: Never 3. How often do you have six or more drinks on one occasion?: Never Total Score: 0 DINA-7 AMB Questionnaire DINA-7 Date DINA - 7 assessed: 07/25/24 Feeling nervous, anxious, or on edge: 3 = Nearly every day Not being able to stop or control worryin = Not at all Worrying too much about different things: 2 = More than half the days Trouble relaxin = Nearly every day Being so restless that it is hard to sit still: 1 = Several days Becoming easily annoyed or irritable: 0 = Not at all Feeling afraid as if something awful might happen: 3 = Nearly every day Total DINA-7 score (0-4 normal; 5-9 mild; 10-14 moderate; 15-21 severe): 12 Source: Developed by Drs. Odin Leblanc, Lawrence Guajardoke and colleagues, with an educational tawanna from [employer]. DINA-7 Assessment Billing IDNA-7 Assessment Tool: DINA-7 Assessment 46192 Review of Systems Const Denies headache(s) Eyes Denies loss of vision ENT Denies vertigo, Denies dizziness, Denies headache(s) and Denies sore throat Card Denies chest pain, Denies leg edema and Denies lightheadedness Resp Denies cough and Denies hemoptysis GI Denies abdominal pain, Denies melena, Denies constipation, Denies diarrhea and Denies vomiting Denies dysuria, Denies urinary frequency and Denies urinary urgency Musc Reports back pain (burning type pain to left mid back), Denies arthralgias, Denies joint swelling, Reports muscle cramps (right inner thigh), Denies numbn ess and Denies tingling Neuro Denies Abnormal speech present, Denies vertigo, Denies dizziness, Denies headache(s), Denies loss of vision, Denies numbness and Denies tingling Physical exam (Primary Care) Vital Signs: Last Vital Signs Temp 98.6 F 07/25/24 10:32 Pulse 84 07/25/24 10:32 Resp 16 07/25/24 10:32 BP 126/88 07/25/24 10:32 Pulse Ox 97 07/25/24 10:32 Oxygen Delivery Method Room Air 07/25/24 10:32 BMI result Body Mass Index 29.0 Tobacco/Smoking Status: Tobacco use Status Tobacco use date assessed 07/25/24 07/25/24 10:43 Patient Tobacco Use Status Never used Tobacco 07/25/24 10:43 Tobacco use type 07/25/24 10:43 e-Cigarette/Vaping Use Currently Using 07/25/24 10:43 PHQ-9: PHQ-9 Score PHQ-9: Total score 14 07/25/24 11:04 Depression Screening Interpretation: Positive Thrive Assessment: Date of Thrive Assessment Date Thrive assessed 07/25/24 07/25/24 10:43 Currently or been in a relationship where the following occur: No concerns reported Const General: healthy appearing, no acute distress, alert and awake Nutritional Appearance: well nourished Orientation/consciousness: oriented to person, oriented to place and oriented to time HENMT Ears: TM's normal bilaterally General nose exam: Normal nasal mucous membranes and turbinates present Eyes Conjunctivae: conjunctivae normal Sclerae: sclerae normal Pupils: Equal, round and reactive pupils present Neck Neck: Yes no lymphadenopathy and Yes no JVD Thyroid: Thyroid normal Carotids: no bruits Resp Effort & Inspection: normal respiratory effort and not tachypneic Auscultation: no crackles, no rales, no rhonchi and no wheezes Cardio Rate: regular rate Rhythm: regular rhythm Heart sounds: no murmurs and normal S1 and S2 GI Palpation (GI): Soft to palpation, nontender, no hepatomegaly and no splenomegaly Auscultation: normal bowel sounds Back/Spine/Pelvis Thoracic/Lumbar Spine: No thoracic spinal tenderness and No lumbar spinal tenderness Skin General skin exam: no rashes or lesions noted, dry skin and scars left mid back Nails: discolored (right great toe) Neuro General: oriented to person, oriented to place and oriented to time Cranial nerves: Yes Equal, round and reactive pupils present Speech: No Abnormal speech present Gait exam (Neuro): Normal gait present Motor exam (neuro): no tremor noted Extrem Right upper extremity: full ROM Left upper extremity: full ROM Right lower extremity: full ROM; no edema Left lower extremity: full ROM; no edema Psych Mental Status: mental status grossly normal Speech and movement: Normal speech and movement present Affect: normal affect Attitude: cooperative Thought process: Normal thought process present Coding Level of Care Code Est Pt Level 4 (49169) Diagnoses Right thigh pain M79.651 Mid back pain on left side M54.9 Pain due to onychomycosis of toenail of right foot B35.1; M79.674 Additional Codes DINA-7 Assessment Billing - DINA-7 Assessment Tool: DINA-7 Assessment 79442 ([id number]) PHQ-9 - 54318 - PHQ-9 Billing: Yes ([id number]) Time Spent (min) 39 Assessment & Plan Assessment & Plan (1) Right thigh pain: Code(s): M79.651 - Pain in right thigh Category: Medical Plan: Description of pain consistent with muscle cramps. Encouraged the patient to start taking magnesium oxide 400mg at HS. Cyclobenzaprine 10 mg at HS PRN ordered. Will complete labs to further evaluate (2) Mid back pain on left side: Code(s): M54.9 - Dorsalgia, unspecified Category: Medical Plan: s/p seroma of skin removal. c/o nerve pain in the area. Will start the patient on gabapentin 100 mg BID (3) Pain due to onychomycosis of toenail of right foot: Code(s): B35.1 - Tinea unguium; M79.674 - Pain in right toe(s) Category: Medical Plan: Informed the patient of the risk of start a systemic treatment. He wants to proceed, will check his liver function to see the if the patient is a candidate Orders: Orders Comprehensive Sumrall. Panel Fast Today M54.5 - Low back pain, M79.651 - Pain in right thigh, Z00.00 - Encounter for general adult medical examination without abnormal findings Lipid Panel Today M54.5 - Low back pain, M79.651 - Pain in right thigh, Z00.00 - Encounter for general adult medical examination without abnormal findings UA CC w/rflx Micro + Cult Today M54.5 - Low back pain, M79.651 - Pain in right thigh, Z00.00 - Encounter for general adult medical examination without abnormal findings Magnesium Today M54.5 - Low back pain, M79.651 - Pain in right thigh, Z00.00 - Encounter for general adult medical examination without abnormal findings Complete Blood Count Auto Diff Today M54.5 - Low back pain, M79.651 - Pain in right thigh, Z00.00 - Encounter for general adult medical examination without abnormal findings TSH reflex Free T4 Today M54.5 - Low back pain, M79.651 - Pain in right thigh, Z00.00 - Encounter for general adult medical examination without abnormal findings Glucose Fasting Today M54.5 - Low back pain, M79.651 - Pain in right thigh, Z00.00 - Encounter for general adult medical examination without abnormal findings Vitamin D 25-OH Total Today M54.5 - Low back pain, M79.651 - Pain in right thigh, Z00.00 - Encounter for general adult medical examination without abnormal findings Vitamin B12 Today M54.5 - Low back pain, M79.651 - Pain in right thigh, Z00.00 - Encounter for general adult medical examination without abnormal findings Medications: New cyclobenzaprine 10 mg PO BEDTIME PRN 30 tabs 2RF muscle spasm M79.651 - Pain in right thigh gabapentin 100 mg PO BID 30 caps 2RF M79.2 - Neuralgia and neuritis, unspecified
--- OUTSIDE RECORDS SUMMARY | 2024-07-25 11:18 | XMS_ITS | Clinical Summary ---
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 Name Role Phone Unavailable Primary Care Provider Unavailabl e Social History Tobacco Use Types Packs/Day Years Used Date Smoking Tobacco: Never Assessed Sex and Gender Information Value Date Recorded Sex Assigned at Not on file Legal Sex Male 7:32 PM EST Gender Identity Not on file Sexual Orientation Not on file Plan of Treatment Health Maintenance Due Date Last Done Comments DTaP,Tdap,and Td Vaccines (1 - Tdap) 10/13/1999 Hepatitis B Vaccines (1 of 3 - 19+ 3-dose series) 10/13/1999 Cholesterol Screening (Lipid Panel) 03/26/2022 Depression Screening 03/26/2022 HIV Screening 03/26/2022 Hepatitis C Screening 03/26/2022 Social Influencers of Health Screening 03/26/2022 COVID-19 Vaccine (3 - 2023-2 5 season) 2023 07/31/2020, 07/10/2020 Influenza Vaccine (#1) 2023 HIB Vaccines Aged Out No longer eligi ble based on patient's age to complete this topic HPV Vaccines Aged Out No longer eligi ble based on patient's age to complete this topic Hepatitis A Vaccines Aged Out No long er eligible based on patient's age to complete this topic IPV Vaccines Aged Out No longer eligi ble based on patient's age to complete this topic MMR Vaccines Aged Out No longer eligi ble based on patient's age to complete this topic Meningococcal ACWY Vaccine Aged Out N o longer eligible based on patient's age to complete this topic Meningococcal B Vacine Aged Out No lo nger eligible based on patient's age to complete this topic Pneumococcal Vaccine: Pediatrics (0 to 5 Years) and At-Risk Patients (6 to 64 Years) Aged Out No longer eligible b ased on patient's age to complete this topic RSV Immunization Patients Under 20 months Aged Out No longer eligible b ased on patient's age to complete this topic Varicella Vaccines Aged Out No longer eligible based on patient's age to complete this topic
== END 2024-07-25 11:07 | disposition home or self-care (01) ==
LOC: HO.HMCH 10:22
PROVIDERS: PCP Internal Medicine
DX: M79.651 Pain in right thigh (principal); M54.9 Dorsalgia, unspecified; B35.1 Tinea unguium; M79.674 Pain in right toe(s)

== ENCOUNTER → 2024-07-25 10:21 | Outpatient (BNVA) | payer OTHER, SELFPAY | PROVIDERS: PCP Internal Medicine | DX: M79.651 Pain in right thigh (principal); M54.9 Dorsalgia, unspecified; B35.1 Tinea unguium; M79.674 Pain in right toe(s); Z98.890 Other specified postprocedural states | CPT/HCPCS: 96127 ==